=== PATIENT | male | born 1975 | race Caucasian/White ===

== ENCOUNTER 2023-09-25 17:54 | Emergency (ER) | payer BC ==
[2023-09-25 18:35] VITALS: TEMP 97.7
[2023-09-25 19:38] LABS: Basophils # (A) 0.1 k/uL (0-0.2); Basophils % (A) 1 %; Eosinophils # (A) 0.1 k/uL (0-0.7); Eosinophils % (A) 1 %; HCT 47.8 % (39.0-53.0); HGB 16.9 gm/dL (13.0-17.5); Lymphocytes % (A) 25 %; MCH 30.4 pg (25.0-35.0); MCHC 35.3 g/dL (31.0-37.0); MCV 85.9 fL (80.0-100.0); Mean Platelet Volume 8.9; Monocytes # (A) 0.4 k/uL (0-1.0); Monocytes % (A) 5 %; Neutrophils # (A) 5.7 k/uL (1.3-7.7); Neutrophils % (A) 68 %; Platelet Count 222 k/uL (150-450); RBC 5.56 m/uL (4.30-5.90); RDW 12.1 % (11.5-15.5); WBC 8.3 k/uL (3.8-10.6)
[2023-09-25 19:45] LABS: INR 1.1 (<1.2); Partial Thromboplastin Time 23.4 sec (22.0-30.0)
--- NOTE | 2023-09-25 20:08 | XR ---
EXAMINATION TYPE: XR chest 2V DATE OF EXAM: 09/25/2023 7:45 PM CLINICAL INDICATION:Male, 47 years old with history of Chest Pain; COMPARISON: None TECHNIQUE: XR chest 2V Frontal and lateral views of the chest. FINDINGS: Lungs/Pleura: There is no evidence of pleural effusion, focal consolidation, or pneumothorax. Pulmonary vascularity: Unremarkable. Heart/mediastinum: Cardiomediastinal silhouette is unremarkable. Musculoskeletal: No acute osseous pathology. IMPRESSION: No acute cardiopulmonary disease/process.
[2023-09-25 21:17] LABS: ALT 25 U/L (4-49); African American GFR (CKD) >90 (>60 ml/min/1.73 sqM); Albumin 4.4 g/dL (3.5-5.0); Anion Gap 7 mmol/L; Blood Urea Nitrogen 22 mg/dL (9-20); Calcium 9.4 mg/dL (8.4-10.2); Carbon Dioxide 26 mmol/L (22-30); Chloride 104 mmol/L (98-107); Glucose 145 mg/dL (74-99); Non-African American GFR(CKD) >90 (>60 ml/min/1.73 sqM); Sodium 137 mmol/L (137-145); Total Bilirubin 0.9 mg/dL (0.2-1.3); Total Protein 7.2 g/dL (6.3-8.2)
[2023-09-25 21:18] LABS: AST 30 U/L (17-59); Magnesium 1.4 mg/dL (1.6-2.3); Potassium 5.6 mmol/L (3.5-5.1)
[2023-09-25 21:19] LABS: Alkaline Phosphatase 40 U/L (38-126)
[2023-09-25] MEDS: SODIUM CHLORIDE 0.9% 1,000 ML IV STA (21:29)
--- NOTE | 2023-09-25 22:00 | ED ---
Dizziness HPI - General Chief Complaint: Syncope Stated Complaint: Dizziness Source: patient Mode of arrival: ambulatory Limitations: no limitations - History of Present Illness Initial Comments: 47-year-old male presenting to the ED with a chief complaint of syncope. Patient notes history of this in the past and reports episode today similar to that. Patient states that he was getting a laser eye procedure performed and stated he started to feel an overwhelming sense that he was going to pass out. Apparently had a syncopal episode lasting 3 to 4 seconds. There is no chest pain shortness of breath preceding this. At this time patient reports all symptoms resolved and has no current complaints. - Related Data Allergies Allergy/AdvReac Type Severity Reaction Status Date / Time No Known Allergies Allergy Verified 09/25/23 18:19 Review of Systems ROS Statement: Those systems with pertinent positive or pertinent negative responses have been documented in the HPI. ROS Other: All systems not noted in ROS Statement are negative. Past Medical History Past Medical History: Diabetes Mellitus Additional Past Medical History / Comment(s): AV block History of Any Multi-Drug Resistant Organisms: None Reported Past Surgical History: No Surgical Hx Reported Past Psychological History: No Psychological Hx Reported Smoking Status: Never smoker Past Alcohol Use History: None Reported Past Drug Use History: None Reported General Exam Limitations: no limitations General appearance: alert, in no apparent distress Eye exam: Present: normal appearance Neck exam: Present: normal inspection Respiratory exam: Present: normal lung sounds bilaterally Cardiovascular Exam: Present: regular rate, normal rhythm GI/Abdominal exam: Present: soft Neurological exam: Present: alert, oriented X3 Skin exam: Present: warm, dry Course Vital Signs 09/25/23 09/25/23 09/25/23 18:15 19:08 21:31 Temperature 97.7 F Pulse Rate 94 95 103 H Pulse Rate [ Right Sitting Overlock Hemmer ] Pulse Rate [ Right Standing Overlock Hemmer ] Pulse Rate [ Right Supine Overlock Hemmer ] Respiratory 16 18 18 Rate Blood Pressure 103/70 116/82 112/74 Blood Pressure [Right Arm Sitting] Blood Pressure [Right Arm Standing] Blood Pressure [Right Arm Supine] O2 Sat by Pulse 100 99 98 Oximetry 09/25/23 21:39 Temperature Pulse Rate Pulse Rate [ 105 H Right Sitting Overlock Hemmer ] Pulse Rate [ 120 H Right Standing Overlock Hemmer ] Pulse Rate [ 99 Right Supine Overlock Hemmer ] Respiratory 18 Rate Blood Pressure Blood Pressure 110/76 [Right Arm Sitting] Blood Pressure 101/70 [Right Arm Standing] Blood Pressure 121/75 [Right Arm Supine] O2 Sat by Pulse Oximetry Medical Decision Making - Medical Decision Making Was pt. sent in by a medical professional or institution ([facility], FACILITY EXAMINER, urgent care, hospital, or care home...) When possible be specific @ -No Did you speak to anyone other than the patient for history (EMS, parent, family, police, friend...)? What history was obtained from this source @ -No Did you review nursing and triage notes (agree or disagree)? Why? @ -I reviewed and agree with nursing and triage notes Were old charts reviewed (outside hosp., previous admission, EMS record, old EKG, old radiological studies, urgent care reports/EKG's, care home records)? Report findings @ -No old charts were reviewed Differential Diagnosis (chest pain, altered mental status, abdominal pain women, abdominal pain men, vaginal bleeding, weakness, fever, dyspnea, syncope, headache, dizziness, GI bleed, back pain, seizure, CVA, palpatations, mental health, musculoskeletal)? @ -Differential Syncope: Valvular disease, hypertrophic cardiomyopathy, pulmonary embolism, tamponade, tachycardia, bradycardia, ND, hypovolemia, hemorrhage, dissection, anemia, intracranial hemorrhage, seizure, hypoglycemia, carbon monoxide poisoning, this is not meant to be an all-inclusive list. EKG interpreted by me (3pts min.). @ -EKG interpreted by me that showed right bundle branch block with diffuse ST and T wave changes at 95 bpm. VA 184, QRS 162, QT/QTc 498/550 X-rays interpreted by me (1pt min.). @ -Chest x-ray interpreted by me shows no evidence of acute process. CT interpreted by me (1pt min.). @ -None done U/S interpreted by me (1pt. min.). @ -None done What testing was considered but not performed or refused? (CT, X-rays, U/S, labs)? Why? @ -None What meds were considered but not given or refused? Why? @ -None Did you discuss the management of the patient with other professionals (professionals i.e. [facility], FACILITY EXAMINER, lab, RT, psych nurse, clinical social work aide, registered radiologic technologist, teacher, deck officer, outpatient case manager)? Give summary @ -No Was smoking cessation discussed for >3mins.? @ -No Was critical care preformed (if so, how long)? @ -No Were there social determinants of health that impacted care today? How? (Homelessness, low income, unemployed, alcoholism, drug addiction, transportation, low edu. Level, literacy, decrease access to med. care, skilled nursing, rehab)? @ -No Was there de-escalation of care discussed even if they declined (Discuss DNR or withdrawal of care, Hospice)? DNR status @ -No What co-morbidities impacted this encounter? (DM, HTN, Smoking, COPD, CAD, Cancer, CVA, ARF, Chemo, Hep., AIDS, mental health diagnosis, sleep apnea, morb id obesity)? @ -Hypertension, hyperlipidemia, type 2 diabetes. Was patient admitted / discharged? Hospital course, mention meds given and route, prescriptions, significant lab abnormalities, going to OR and other pertinent info. @ -Discharge 47-year-old male presenting to the ED with a chief complaint of syncopal episode. EKG obtained that showed right bundle branch block with diffuse ST and T wave changes at 95 bpm. VA 184, QRS 162, QT/QTc 498/550. Patient does note history of right bundle branch block in the past however no old for comparison at this time. Denies chest pain or shortness of breath at this time. Laboratory studies at this time largely unremarkable including troponin. Patient did show some positive orthostatics however does note that he did have minimal food and fluid intake today prior to his procedure. Patient provided IV fluids. Vital signs stable and afebrile. Discharged home in stable condition with referral to see cardiology. Discussed return precautions with patient who verbalized agreement. Undiagnosed new problem with uncertain prognosis? @ -No Drug Therapy requiring intensive monitoring for toxicity (Heparin, Nitro, Insulin, Cardizem)? @ -No Were any procedures done? @ -No Diagnosis/symptom? @ -Syncopal episode Acute, or Chronic, or Acute on Chronic? @ -Acute Uncomplicated (without systemic symptoms) or Complicated (systemic symptoms)? @ -Uncomplicated Side effects of treatment? @ -No Exacerbation, Progression, or Severe Exacerbation? @ -No Poses a threat to life or bodily function? How? (Chest pain, USA, ND, pneumonia, PE, COPD, DKA, ARF, appy, cholecystitis, CVA, Diverticulitis, Homicidal, Suicidal, threat to staff... and all critical care pts) @ -No - Lab Data Result diagrams: 09/25/23 19:28 09/25/23 19:47 Lab Results 09/25/23 09/25/23 09/25/23 Range/Units 19:28 19:28 19:28 WBC 8.3 (3.8-10.6) k/uL RBC 5.56 (4.30-5.90) m/uL Hgb 16.9 (13.0-17.5) gm/dL Hct 47.8 (39.0-53.0) % MCV 85.9 (80.0-100.0) fL MCH 30.4 (25.0-35.0) pg MCHC 35.3 (31.0-37.0) g/dL RDW 12.1 (11.5-15.5) % Plt Count 222 (150-450) k/uL MPV 8.9 Neutrophils % 68 % Lymphocytes % 25 % Monocytes % 5 % Eosinophils % 1 % Basophils % 1 % Neutrophils # 5.7 (1.3-7.7) k/uL Lymphocytes # 2.0 (1.0-4.8) k/uL Monocytes # 0.4 (0-1.0) k/uL Eosinophils # 0.1 (0-0.7) k/uL Basophils # 0.1 (0-0.2) k/uL PT 12.0 (10.0-12.5) sec INR 1.1 (<1.2) APTT 23.4 (22.0-30.0) sec Sodium (137-145) mmol/L Potassium (3.5-5.1) mmol/L Chloride (98-107) mmol/L Carbon Dioxide (22-30) mmol/L Anion Gap mmol/L BUN (9-20) mg/dL Creatinine (0.66-1.25) mg/dL Est GFR (CKD-EPI)AfAm (>60 ml/min/1.73 sqM) Est GFR (CKD-EPI)NonAf (>60 ml/min/1.73 sqM) Glucose (74-99) mg/dL Calcium (8.4-10.2) mg/dL Magnesium (1.6-2.3) mg/dL Total Bilirubin (0.2-1.3) mg/dL AST (17-59) U/L ALT (4-49) U/L Alkaline Phosphatase (38-126) U/L Troponin I <0.012 (0.000-0.034) ng/mL Total Protein (6.3-8.2) g/dL Albumin (3.5-5.0) g/dL 09/25/23 Range/Units 19:47 WBC (3.8-10.6) k/uL RBC (4.30-5.90) m/uL Hgb (13.0-17.5) gm/dL Hct (39.0-53.0) % MCV (80.0-100.0) fL MCH (25.0-35.0) pg MCHC (31.0-37.0) g/dL RDW (11.5-15.5) % Plt Count (150-450) k/uL MPV Neutrophils % % Lymphocytes % % Monocytes % % Eosinophils % % Basophils % % Neutrophils # (1.3-7.7) k/uL Lymphocytes # (1.0-4.8) k/uL Monocytes # (0-1.0) k/uL Eosinophils # (0-0.7) k/uL Basophils # (0-0.2) k/uL PT (10.0-12.5) sec INR (<1.2) APTT (22.0-30.0) sec Sodium 137 (137-145) mmol/L Potassium 5.6 H (3.5-5.1) mmol/L Chloride 104 (98-107) mmol/L Carbon Dioxide 26 (22-30) mmol/L Anion Gap 7 mmol/L BUN 22 H (9-20) mg/dL Creatinine 0.63 L (0.66-1.25) mg/dL Est GFR (CKD-EPI)AfAm >90 (>60 ml/min/1.73 sqM) Est GFR (CKD-EPI)NonAf >90 (>60 ml/min/1.73 sqM) Glucose 145 H (74-99) mg/dL Calcium 9.4 (8.4-10.2) mg/dL Magnesium 1.4 L (1.6-2.3) mg/dL Total Bilirubin 0.9 (0.2-1.3) mg/dL AST 30 (17-59) U/L ALT 25 (4-49) U/L Alkaline Phosphatase 40 (38-126) U/L Troponin I (0.000-0.034) ng/mL Total Protein 7.2 (6.3-8.2) g/dL Albumin 4.4 (3.5-5.0) g/dL Disposition Clinical Impression: Syncopal episodes Disposition: HOME SELF-CARE Condition: Good Instructions (If sedation given, give patient instructions): Syncope (ED) Additional Instructions: Please return to the Emergency Department if symptoms worsen or any other concerns. Please follow-up with your PCP and or cardiology. Is patient prescribed a controlled substance at d/c from ED?: No Referrals: Hong Salgado MD [Primary Care Provider] - 1-2 days Felxi Vieira MD [STAFF PHYSICIAN] - 1-2 days Time of Disposition: 22:00
[2023-09-25 22:59] VITALS: BP 114/83; PULSE 97; RESP 16
== END 2023-09-25 22:40 | disposition home or self-care (01) ==
LOC: EC 17:54
DX: R55 Syncope and collapse (principal); E11.9 Type 2 diabetes mellitus without complications; Z20.822 Contact with and (suspected) exposure to COVID-19
CPT/HCPCS: 36415; 71046; 80053; 83735; 84484; 85025; 85610; 85730; 87636; 93005; 96360; 99284